=== PATIENT | male | born 1945 | race African-American/Black ===

== ENCOUNTER 2020-06-07 01:58 | Inpatient (IN) | payer MEDICARE, OTHER ==
[~2020-06-07] VITALS: Ht 190.5 cm; Wt 66.8 kg
[~2020-06-07 01:58] MED LIST: ALLO100T PO; FURO-152 PO; METH10TA2 PO; OMEP20CA14 PO; TAMS-11 PO
[2020-06-07] MEDS ORDERED: IPRATROPIUM BROMIDE (0.02%) 0.5MG/2.5ML NEB HHN STA (09:11)
[2020-06-07] MEDS ORDERED: MAGNESIUM 2 G PREMIX 50 ML IV STA (09:11)
[2020-06-07] MEDS ORDERED: ALBUTEROL (0.083%) 2.5MG/3ML NEB HHN STA (09:11)
[2020-06-07] MEDS ORDERED: METHYLPREDNISOLONE SOD SUCC 125 MG/2 ML VIAL IV STA (09:11)
[2020-06-07 09:22] LABS: BASOPHILS % 0.8 % (0.0-2.0); EOSINOPHILS % 1.6 % (0.0-5.0); HEMATOCRIT. 49.7 % (42.0-52.0); HEMOGLOBIN. 14.7 g/dL (14.0-18.0); LYMPHOCYTES % 9.2 % (20.0-50.0); MEAN CORPUSCULAR HEMOGLOBIN 27.2 pg (28.0-32.0); MEAN CORPUSCULAR VOLUME 91.8 fL (80.0-94.0); NEUTROPHILS % 76.4 % (40.0-76.0); PLATELET 636 x1000/uL (130-400); RED BLOOD CELL COUNT 5.41 mill/uL (4.7-6.1); RED CELL DISTRIBUTION WIDTH 18.7 % (11.6-14.6)
[2020-06-07 09:48] LABS: CHLORIDE 111 mEq/L (98-107)
[2020-06-07] MEDS ORDERED: SODIUM BICARBONATE 8.4% 1 MEQ/ML 50ML SYR IV SCH (11:00)
[2020-06-07] MEDS ORDERED: DEXTROSE 50% WATER 50ML SYRINGE IV SCH (11:00)
[2020-06-07] MEDS ORDERED: CALCIUM CHLORIDE 1GM/10ML SYR IV SCH (11:00)
[2020-06-07] MEDS ORDERED: ASPIRIN 325MG EC TABLET PO SCH (11:00)
[2020-06-07] MEDS ORDERED: INSULIN REGULAR (HUMULIN R) 300UNITS/3ML VIAL IV SCH (11:00)
[2020-06-07] MEDS ORDERED: FUROSEMIDE 20MG/2ML VIAL IVP ONE (13:00)
[2020-06-07] MEDS ORDERED: ONDANSETRON HCL 4MG/2ML INJ IV PRN (15:30)
[2020-06-07] MEDS ORDERED: IPRATROPIUM/ALBUTEROL 0.5-3(2.5)MG/3ML NEB HHN PRN (15:30)
[2020-06-07] MEDS ORDERED: ACETAMINOPHEN 325MG TABLET PO PRN (15:30)
[2020-06-07] MEDS ORDERED: CLONIDINE 0.1MG TABLET PO PRN (15:30)
[2020-06-07] MEDS ORDERED: DIPHENHYDRAMINE 50MG/ML VIAL IV PRN (15:30)
[2020-06-07] MEDS ORDERED: ALBUTEROL 6.7GM HFA INHALER ORI PRN (16:15)
[2020-06-07] MEDS: FUROSEMIDE 40MG/4ML VIAL IVP SCH (16:15)
[2020-06-07] MEDS: ENOXAPARIN 40MG/0.4ML SYR SUBCUT SCH (16:33)
[2020-06-07] MEDS: METHYLPREDNISOLONE SOD SUCC 125 MG/2 ML VIAL IV SCH ×2 (16:34→22:22)
[2020-06-07 16:50] LABS: PHOSPHORUS 5.1 mg/dL (2.5-4.9)
[2020-06-07] MEDS ORDERED: SODIUM POLYSTYRENE SULFONATE 15 G/60 ML BOT PO NR (17:00)
[2020-06-07] MEDS ORDERED: FUROSEMIDE 40MG/4ML VIAL IVP SCH (17:15)
[2020-06-07] MEDS ORDERED: FUROSEMIDE 40MG/4ML VIAL IVP NR (17:24)
[2020-06-07 18:37] LABS: *AMPHETAMINES SCREEN URINE NEGATIVE (NEGATIVE)
[2020-06-07 18:38] LABS: *BARBITURATES SCREEN URINE NEGATIVE (NEGATIVE); *BENZODIAZEPINES SCREEN URINE NEGATIVE (NEGATIVE); *COCAINE SCREEN URINE NEGATIVE (NEGATIVE); METHADONE URINE SCREEN NEGATIVE (NEGATIVE); OPIATES URINE SCREEN NEGATIVE (NEGATIVE); PHENCYCLIDINE URINE SCREEN NEGATIVE (NEGATIVE)
[2020-06-07 18:39] LABS: CANNABINOID URINE SCREEN NEGATIVE (NEGATIVE)
[2020-06-07] MEDS: ATORVASTATIN CALCIUM 40MG TABLET PO SCH (21:58)
[2020-06-08] VITALS (13 sets, daily range): BP systolic 118–134; BP diastolic 43–107
[2020-06-08] MEDS: METHYLPREDNISOLONE SOD SUCC 125 MG/2 ML VIAL IV SCH ×4 (04:01→21:22)
[2020-06-08 07:29] LABS: HEMATOCRIT. 44.4 % (42.0-52.0); HEMOGLOBIN. 13.6 g/dL (14.0-18.0); MEAN CORPUSCULAR HEMOGLOBIN 27.4 pg (28.0-32.0); MEAN CORPUSCULAR VOLUME 89.4 fL (80.0-94.0); MEAN PLATELET VOLUME 10.3 fl (7.4-10.4); PLATELET 711 x1000/uL (130-400); RED BLOOD CELL COUNT 4.97 mill/uL (4.7-6.1); RED CELL DISTRIBUTION WIDTH 18.1 % (11.6-14.6)
[2020-06-08 07:36] LABS: CHLORIDE 105 mEq/L (98-107)
[2020-06-08 07:47] LABS: LDL CHOLESTEROL 58 mg/dL (5-100)
[2020-06-08 07:50] LABS: HDL CHOLESTEROL 53 mg/dL (40-59)
[2020-06-08] MEDS: FUROSEMIDE 40MG/4ML VIAL IVP SCH (08:29)
[2020-06-08 10:50] LABS: PLATELET ESTIMATE INCREASED
[2020-06-08 11:46] LABS: CREATINE KINASE 83 IU/L (39-308)
[2020-06-08] MEDS: ASPIRIN 81MG EC TABLET PO SCH (13:53)
[2020-06-08] MEDS: ENOXAPARIN 40MG/0.4ML SYR SUBCUT SCH (16:36)
[2020-06-08] MEDS: ATORVASTATIN CALCIUM 40MG TABLET PO SCH (21:22)
[2020-06-09] VITALS (7 sets, daily range): BP systolic 116–148; BP diastolic 67–89
[2020-06-09] MEDS: METHYLPREDNISOLONE SOD SUCC 125 MG/2 ML VIAL IV SCH (04:12)
[2020-06-09] MEDS ORDERED: DILTIAZEM HCL 30MG TABLET PO SCH (09:00)
[2020-06-09 09:11] LABS: HEMATOCRIT. 45.8 % (42.0-52.0); HEMOGLOBIN. 14.3 g/dL (14.0-18.0); MEAN CORPUSCULAR HEMOGLOBIN 27.9 pg (28.0-32.0); MEAN PLATELET VOLUME 10.6 fl (7.4-10.4); PLATELET 787 x1000/uL (130-400); RED BLOOD CELL COUNT 5.14 mill/uL (4.7-6.1); RED CELL DISTRIBUTION WIDTH 18.2 % (11.6-14.6)
[2020-06-09] MEDS: ASPIRIN 81MG EC TABLET PO SCH (09:30)
[2020-06-09] MEDS ORDERED: METHYLPREDNISOLONE SOD SUCC 40 MG/ML VIAL IV SCH (09:30)
[2020-06-09] MEDS: FUROSEMIDE 40MG/4ML VIAL IVP SCH (09:36)
[2020-06-09 09:48] LABS: CLARITY URINE CLEAR (CLEAR); COLOR URINE YELLOW (YELLOW); KETONES URINE NEGATIVE (NEGATIVE); LEUKOCYTE ESTERASE URINE TRACE (NEGATIVE); NITRITE URINE NEGATIVE (NEGATIVE); OCCULT BLOOD URINE NEGATIVE (NEGATIVE); PH URINE 6.5 (4.5-8.0); PROTEIN URINE 1+ (NEGATIVE); SPECIFIC GRAVITY URINE 1.016 (1.005-1.030)
[2020-06-09 10:17] LABS: *AMPHETAMINES SCREEN URINE NEGATIVE (NEGATIVE); *BARBITURATES SCREEN URINE NEGATIVE (NEGATIVE); *BENZODIAZEPINES SCREEN URINE NEGATIVE (NEGATIVE); *COCAINE SCREEN URINE NEGATIVE (NEGATIVE)
[2020-06-09 10:18] LABS: CANNABINOID URINE SCREEN NEGATIVE (NEGATIVE); METHADONE URINE SCREEN NEGATIVE (NEGATIVE); OPIATES URINE SCREEN NEGATIVE (NEGATIVE); PHENCYCLIDINE URINE SCREEN NEGATIVE (NEGATIVE)
[2020-06-09] MEDS ORDERED: CARSR90 MT (11:51)
[2020-06-09] MEDS ORDERED: TAMS-11 PO (11:51)
[2020-06-09] MEDS ORDERED: ALLO100T PO (11:51)
[2020-06-09] MEDS ORDERED: ASPI-1158 PO (11:51)
[2020-06-09] MEDS ORDERED: FURO-152 PO (11:51)
[2020-06-09] MEDS ORDERED: LIP40 PO (11:51)
[2020-06-09] MEDS ORDERED: FURO40TA5 MT (12:01)
[2020-06-09] MEDS ORDERED: MAGNESIUM OXIDE 400MG TABLET PO NR (12:15)
[2020-06-09 16:37] LABS: PLATELET ESTIMATE INCREASED
[2020-06-09 19:10] LABS: ANTI-NUCLEAR ANTIBODIES DIRECT Negative (Negative)
== END 2020-06-09 15:23 | disposition home or self-care (01) | DRG 291 ==
LOC: ER 01:58 → 3WST 10:26 → EDBEDREQ 15:04 → ENRESERV 20:44
PROVIDERS: ADMIT Internal Medicine; ATTEND Internal Medicine
DX: I13.0 Hypertensive heart and chronic kidney disease with heart failure and stage 1 through stage 4 chronic kidney disease, or unspecified chronic kidney disease (principal); J96.01 Acute respiratory failure with hypoxia; I50.43 Acute on chronic combined systolic (congestive) and diastolic (congestive) heart failure; J44.1 Chronic obstructive pulmonary disease with (acute) exacerbation; N17.9 Acute kidney failure, unspecified; I42.9 Cardiomyopathy, unspecified; I25.10 Atherosclerotic heart disease of native coronary artery without angina pectoris; F17.210 Nicotine dependence, cigarettes, uncomplicated; M10.9 Gout, unspecified; E87.5 Hyperkalemia; D64.9 Anemia, unspecified; D75.1 Secondary polycythemia; E78.5 Hyperlipidemia, unspecified; F11.10 Opioid abuse, uncomplicated; N18.9 Chronic kidney disease, unspecified; G62.9 Polyneuropathy, unspecified; M19.90 Unspecified osteoarthritis, unspecified site; Z95.1 Presence of aortocoronary bypass graft; Z79.84 Long term (current) use of oral hypoglycemic drugs; Z79.899 Other long term (current) drug therapy; Z87.442 Personal history of urinary calculi; Z87.01 Personal history of pneumonia (recurrent)
CPT/HCPCS: 36415; 71045; 76770; 80048; 80053; 80061; 80305; 81003; 82550; 82962; 83735; 83880; 84100; 84443; 84484; 85025; 86038; 86160; 93005; 93306; 93970; 94640; 96374; 96375; 99291; J1650; J1815; J1940; J2920; J2930; J3475; J3490